=== PATIENT | female | born 1960 | race Caucasian/White ===

== ENCOUNTER 2017-04-03 10:52 | Day surgery (SDC) | payer MEDICAID ==
[2017-04-03 12:04] VITALS: PULSE 80; RESP 16; TEMP 98.3
[2017-04-03] MEDS ORDERED: GLUCAGON HCL 1 MG VIAL IVP PRN (12:24)
[2017-04-03] MEDS ORDERED: NALOXONE HCL 0.4 MG/ML INJ IVP PRN (12:24)
[2017-04-03] MEDS ORDERED: PROTAMINE SULFATE 50 MG/5 ML VIAL IVP PRN (12:24)
[2017-04-03] MEDS ORDERED: FLUMAZENIL 0.5 MG/5 ML MDV IVP PRN (12:24)
[2017-04-03] MEDS ORDERED: ALTEPLASE 2 MG VIAL IVP PRN (12:24)
[2017-04-03] MEDS ORDERED: fentaNYL 100 MCG/2 ML INJ IVP PRN (12:24)
[2017-04-03] MEDS ORDERED: MIDAZOLAM 2 MG/2 ML VIAL IVP PRN (12:24)
[2017-04-03] MEDS ORDERED: HEPARIN 10,000 UNIT/10 ML MDV (1,000 UNIT/ML) IVP PRN (12:24)
[2017-04-03] MEDS ORDERED: MEPERIDINE 25 MG/ML SYR IVP PRN (12:24)
[2017-04-03] MEDS ORDERED: NS 1,000 ML IV SCH (12:30)
--- NOTE | 2017-04-03 13:10 | PDPROPOC ---
Sedation Plan of Care Sedation Plan of Care: vital signs stable ASA Classification: ASA 2 Planned drugs: fentanyl, midazolam Mallampati Score: Class 2 Mallampati Reference Image: Patient passed 3-3-2 rule?: Yes
[2017-04-03] MEDS ORDERED: ONDANSETRON 4 MG/2 ML VIAL IVP PRN (13:17)
[2017-04-03] MEDS ORDERED: OXYCODONE/APAP 5/325 TAB PO PRN (13:17)
[2017-04-03] MEDS ORDERED: IOPAMIDOL (ISOVUE-300) 100 ML BTL ONE (14:07)
[2017-04-03 14:24] VITALS: BP 117/77; O2SAT 98
== END 2017-04-03 17:10 | disposition home or self-care (01) ==
LOC: FIMAGING 10:52
PROVIDERS: ATTEND Neurological Surgery
PROC: B31G1ZZ Fluoroscopy of Bilateral Vertebral Arteries using Low Osmolar Contrast (ICD-10-PCS; principal; 2017-04-03)
PROC: B3121ZZ Fluoroscopy of Left Subclavian Artery using Low Osmolar Contrast (ICD-10-PCS; principal; 2017-04-03)
PROC: B31R1ZZ Fluoroscopy of Intracranial Arteries using Low Osmolar Contrast (ICD-10-PCS; principal; 2017-04-03)
DX: I67.1 Cerebral aneurysm, nonruptured (principal)
CPT/HCPCS: 36224; 36226; 99152; C1769; J2250; J2310; J3010; Q9967

== ENCOUNTER 2017-11-05 05:16 | Inpatient (IN) | payer MEDICAID ==
[2017-11-05] MEDS ORDERED: ceFAZolin 2 GM/DEXTROSE 100 ML IV ONE (06:03)
[2017-11-05] MEDS ORDERED: ACETAMINOPHEN 500 MG TAB PO ONE (06:03)
[2017-11-05] MEDS ORDERED: LIDOCAINE 1% 2 ML INJ ID PRN (06:08)
[2017-11-05] MEDS ORDERED: LR 1,000 ML IV ONE (06:08)
[2017-11-05] MEDS ORDERED: MIDAZOLAM 2 MG/2 ML VIAL IVP ONE (06:48)
--- NOTE | 2017-11-05 07:00 | PDANEPAE ---
ANE History of Present Illness Left MCA ANE Past Medical History - Cardiovascular History Hx Hypertension: Yes Hx Arrhythmias: No Hx Chest Pain: No Hx Coronary Artery / Peripheral Vascular Disease: No Hx CHF / Valvular Disease: No Hx Palpitations: No Cardiovascular History Comment: Heart murmur - Pulmonary History Hx COPD: No Hx Asthma/Reactive Airway Disease: No Hx Recent Upper Respiratory Infection: No Hx Oxygen in Use at Home: No Hx Sleep Apnea: No Sleep Apnea Screening Result - Last Documented: Negative - Neurologic History Hx Cerebrovascular Accident: No Hx Seizures: No Hx Dementia: No Neurologic History Comment: VERTIGO EPISODE 03/2017. ONGOING DIZZINESS EPISODES. CEREBRAL ANEURYSM X2 - Endocrine History Hx Diabetes: No - Renal History Hx Renal Disorders: No - Liver History Hx Hepatic Disorders: No Hepatic History Comment: Cirrhosis. Hep C-treated and cured. 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 HERNIA - Other Health History Other Health History: NEG - Chronic Pain History Chronic Pain: Yes (b/l hands/feet) - Surgical History Prior Surgeries: aortic coarctation repair (17yr old). tubal ligation 1981 ANE Review of Systems Review of Systems: - Exercise capacity METS (RN): 4 METS - Systems Cardiac: Reports: no symptoms Respiratory: Reports: no symptoms, other (KULWINDER ?) ANE Patient History - Allergies Allergies/Adverse Reactions: No Allergies [NKA] Allergy (Verified 04/02/17 11:01) - Home Medications Home medications: home medication list seen and reviewed Home Medications: DULoxetine [Cymbalta 60 MG (*)] 60 mg PO DAILY 10/09/17 [Last Taken 10/29/17] Herbals/Supplements -Info Only 1 ea PO DAILY 10/09/17 [Last Taken 10/29/17] Lisinopril 30 mg PO DAILY 10/09/17 [Last Taken 10/29/17] Meclizine HCl [Meclizine HCl 25 mg (RX,OTC)] 25 mg PO DAILY PRN 10/09/17 [Last Taken 04/16/17] Multivitamins [Multivitamin (*)] 1 each PO DAILY 10/09/17 [Last Taken 10/29/17] - NPO status NPO Status: no food or drink >8 hours NPO Since - Liquids (Date): 11/04/17 NPO Since - Liquids (Time): 23:00 NPO Since - Solids (Date): 11/04/17 NPO Since - Solids (Time): 23:00 - Anes Hx Anes Hx: no prior problems - Smoking Hx Smoking Status: Never smoked Marijuana use: Yes - Alcohol Use Alcohol Use: None - Family Anes Hx Family Anes Hx: none Family Hx Anesthesia Complications: None ANE Labs/Vital Signs - Vital Signs Blood Pressure: 145/106 Heart Rate: 71 Respiratory Rate: 16 O2 Sat (%): 97 Height: 148.59 cm Weight: 68.946 kg
--- NOTE | 2017-11-05 07:08 | PDANEPAE ---
ANE Past Medical History - Cardiovascular History Hx Hypertension: Yes Hx Arrhythmias: No Hx Chest Pain: No Hx Coronary Artery / Peripheral Vascular Disease: No Hx CHF / Valvular Disease: No Hx Palpitations: No Cardiovascular History Comment: Heart murmur - Pulmonary History Hx COPD: No Hx Asthma/Reactive Airway Disease: No Hx Recent Upper Respiratory Infection: No Hx Oxygen in Use at Home: No Hx Sleep Apnea: No Sleep Apnea Screening Result - Last Documented: Negative - Neurologic History Hx Cerebrovascular Accident: No Hx Seizures: No Hx Dementia: No Neurologic History Comment: VERTIGO EPISODE 03/2017. ONGOING DIZZINESS EPISODES. CEREBRAL ANEURYSM X2 - Endocrine History Hx Diabetes: No - Renal History Hx Renal Disorders: No - Liver History Hx Hepatic Disorders: No Hepatic History Comment: Cirrhosis. Hep C-treated and cured. 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 HERNIA - Other Health History Other Health History: NEG - Chronic Pain History Chronic Pain: Yes (b/l hands/feet) - Surgical History Prior Surgeries: aortic coarctation repair (17yr old). tubal ligation 1981 ANE Review of Systems Review of Systems: - Exercise capacity METS (RN): 4 METS ANE Patient History - Allergies Allergies/Adverse Reactions: No Allergies [NKA] Allergy (Verified 04/02/17 11:01) - Home Medications Home Medications: DULoxetine [Cymbalta 60 MG (*)] 60 mg PO DAILY 10/09/17 [Last Taken 10/29/17] Herbals/Supplements -Info Only 1 ea PO DAILY 10/09/17 [Last Taken 10/29/17] Lisinopril 30 mg PO DAILY 10/09/17 [Last Taken 10/29/17] Meclizine HCl [Meclizine HCl 25 mg (RX,OTC)] 25 mg PO DAILY PRN 10/09/17 [Last Taken 04/16/17] Multivitamins [Multivitamin (*)] 1 each PO DAILY 10/09/17 [Last Taken 10/29/17] - NPO status NPO Since - Liquids (Date): 11/04/17 NPO Since - Liquids (Time): 23:00 NPO Since - Solids (Date): 11/04/17 NPO Since - Solids (Time): 23:00 - Smoking Hx Smoking Status: Never smoked - Alcohol Use Alcohol Use: None - Family Anes Hx Family Hx Anesthesia Complications: None ANE Labs/Vital Signs - Vital Signs Blood Pressure: 145/106 Heart Rate: 71 Respiratory Rate: 16 O2 Sat (%): 97 Height: 148.59 cm Weight: 68.946 kg ANE Physical Exam - Airway Neck exam: decreased ROM Mallampati Score: Class 2 Mouth exam: normal dental/mouth exam - Pulmonary Pulmonary: no respiratory distress, no rales or rhonchi - Cardiovascular Cardiovascular: regular rate and rhythym, systolic murmur - ASA Status ASA Status: III ANE Anesthesia Plan Anesthesia Plan: general endotracheal anesthesia Lines/Monitors: arterial line, central line Specialized Airway: video laryngoscope
[2017-11-05] MEDS ORDERED: BACITRACIN ZINC 14.2 GM OINTTUBE TP ONE (07:10)
[2017-11-05] MEDS ORDERED: AVITENE POWDER 1 GM JAR TP ONE (07:10)
[2017-11-05] MEDS ORDERED: THROMBIN (BOVINE) 20,000 UNIT VIAL TP ONE (07:10)
[2017-11-05] MEDS ORDERED: BUPIVACAINE 0.25% 30 ML SDV ONE (07:10)
[2017-11-05] MEDS ORDERED: EPINEPHrine 1 MG/ML INJ ONE (07:11)
[2017-11-05] MEDS ORDERED: GENTAMICIN SULFATE 80 MG/2 ML VIAL ONE (07:11)
[2017-11-05] MEDS ORDERED: PROPOFOL/EMULSION 500 MG/50 ML BOTTLE IV ONE ×2 (07:13)
[2017-11-05] MEDS ORDERED: PETROLAT,WHT/MIN OIL/SOD CHL 3.5 GM OPHT.OINT ONE (07:13)
[2017-11-05] MEDS ORDERED: fentaNYL 100 MCG/2 ML INJ ONE ×2 (07:13→11:35)
[2017-11-05] MEDS ORDERED: REMIFENTANIL HCL 2 MG VIAL ONE (07:13)
[2017-11-05] MEDS ORDERED: MANNITOL 20% 100 GM/500 ML BAG IV ONE (07:13)
[2017-11-05] MEDS ORDERED: INDOCYANINE GREEN 25 MG VIAL ONE (07:14)
--- NOTE | 2017-11-05 07:16 | PDHPUP ---
History & Physical Update H&P update statement: This history and physical update is based on an assessment of the patient which was completed after admission or registration (within 24 hours), but prior to the surgery/procedure. H&P update: H&P reviewed & patient examined, no change in patient's condition since H&P completed
[2017-11-05] MEDS ORDERED: CHLORHEXIDINE GLUC HIBICLENS 118 ML BTL TP ONE (07:29)
[2017-11-05] MEDS ORDERED: MIDAZOLAM 2 MG/2 ML VIAL ONE (07:32)
--- NOTE | 2017-11-05 07:37 | GHP ---
DATE OF ADMISSION: 11/05/2017 HISTORY OF PRESENT ILLNESS: This is a 57-year-old female whom we did an angiogram on for bilateral MCA aneurysms. She has a 2.5 mm aneurysm of the right MCA bifurcation and a 3.5 to 4 mm aneurysm at the left MCA bifurcation. She has recovered well from her angiogram and is not having any new symptoms. She came to the clinic to discuss further treatment and said she would like to proceed with surgery for surgical clipping of these aneurysms. She stated that she had a brother who of a ruptured aneurysm and a father whom she had recently found out had aneurysms as well. So for this reason, she was too worried about a risk of rupture, even though it is very low and would like to get it taken care of and she presents electively today for surgical clipping of 1 of these aneurysms today. She denies any recent headaches or other neurologic symptoms. REVIEW OF SYSTEMS: HEENT: Eyes wears glasses. Ears, nose throat: Hearing loss. CARDIOVASCULAR: Significant for chest pain, angina, shortness of breath , high blood pressure, irregular pulse, heart disease. Denies heart murmur. NEUROLOGIC: positive for vertigo, dizziness, facial pain. PSYCHOLOGICAL: Significant for depression. MUSCULOSKELETAL: Significant for back pain, leg pain on the right and the left and leg weakness on the right and left and neck pain. ALLERGIES: Patient has no known drug allergies. PAST MEDICAL HISTORY: The patient has a past medical history of high blood pressure, depression, back pain. PAST SURGICAL HISTORY: Reviewed and there is no current past surgical history. SOCIAL HISTORY: Patient denies any smoking tobacco use. FAMILY HISTORY: Patient has a family history of ruptured aneurysms in the father and the brother. HOME MEDICATIONS: Please see the current home medication reconciliation report. OBJECTIVE: VITAL SIGNS: Blood pressure 145/106, heart rate 71, respiratory rate 16, O2 saturation 97% on room air, temperature 37. NEUROLOGIC: Patient is well developed, well nourished, and speaking full sentences. Her speech is clear and fluent. Cranial nerves 2-12 are grossly intact. Strength is full in all extremities. Sensation is normal. Deep tendon reflexes are normal. Gait is normal. CARDIOVASCULAR: Well perfused. RESPIRATORY: Normal work of breathing. ABDOMEN: No guarding. EXTREMITIES: No edema or calf tenderness. LABORATORY DATA: No current laboratory data to review. DIAGNOSTIC IMAGING: No current diagnostic imaging data to review. ASSESSMENT AND PLAN: The patient has bilateral small unruptured MCA aneurysms. We discussed with her all the options. She has very prominent cervical loops in her bilateral ICA's and given that these are MCA aneurysms, I do not favor endovascular treatment. We explained to her the risk of rupture at probably somewhere less than 0.5% per year. Data has shown the risks of aneurysm is less than 7 mm to be very near zero. However, her risk is probably a bit higher because she has 2 aneurysms. We discussed surgical clipping which we think would be very feasible with low risk especially of the left-sided aneurysm. The other option would be to continue following these yearly with a CTA and only treat them if they start to grow. While the risk of rupture is low , the risk of significant morbidity or is high with rupture. Due to her family history, she would like to proceed with surgery. Discussed with Dr. Crhistianson as well. The patient would like to proceed with clipping of the left MCA aneurysm. /[id number]/MODL MTDD
[2017-11-05] MEDS ORDERED: niCARdipine/NACL/200 ML BAG IV ONE (08:34)
[2017-11-05] MEDS ORDERED: ROCURONIUM 100 MG/10 ML VIAL ONE (09:10)
[2017-11-05] MEDS ORDERED: ROCURONIUM 50 MG/5 ML VIAL ONE (09:11)
[2017-11-05] MEDS ORDERED: PHENYLEPHRINE HCL 100 MCG/ML SYR ONE (09:11)
[2017-11-05] MEDS ORDERED: ONDANSETRON 4 MG/2 ML VIAL ONE (09:11)
[2017-11-05] MEDS ORDERED: DEXAMETHASONE 4 MG/ML VIAL ONE ×2 (09:11)
[2017-11-05] MEDS ORDERED: GLYCOPYRROLATE 0.2 MG/1 ML VIAL ONE (09:12)
[2017-11-05] MEDS ORDERED: REMIFENTANIL HCL 1 MG VIAL ONE (10:44)
[2017-11-05] MEDS ORDERED: ePHEDrine SULFATE 25 MG/5 ML SYR ONE (11:05)
--- NOTE | 2017-11-05 11:43 | GOP ---
DATE OF OPERATION: 11/05/2017 SURGEON: Vinicius Christianson MD INSIDE WIREMAN: ANEL Gay. ANESTHESIA: General endotracheal. PREOPERATIVE DIAGNOSIS: Unruptured bilateral MCA aneurysms. POSTOPERATIVE DIAGNOSIS: Unruptured bilateral MCA aneurysms. PROCEDURE PERFORMED: 1. Left pterional craniotomy. 2. Microsurgical clipping of unruptured left MCA aneurysm (complex with use of temporary clipping). 3. Use of the operative microscope. 4. Indocyanine green angiography with the use of the operative microscope. FINDINGS: Successful clipping of left MCA aneurysm. SPECIMENS: There were no specimens. ESTIMATED BLOOD LOSS: 100 cc. DESCRIPTION OF PROCEDURE: After informed consent was obtained from the patient, the patient was brou ght to the operating room and was placed in a supine position on the operating table. A formal time- out was performed, identifying the patient by name, medical record number, and date of . Preope rative antibiotics were given. An endotracheal tube was placed, and general endotracheal anesthesia was smoothly induced. The patient's head was placed in the [place] pins and turned slightly toward the right side with the malar eminence at the highest point. A curvilinear incision was marked as st andard for pterional craniotomy, and a small strip of hair was clipped along the incision line. 10 c c of 0.25% Marcaine with epinephrine was infiltrated in the skin for hemostasis. The head was then p repped and draped in the normal sterile fashion. The skin was opened using a 10 blade. The subcutan eous tissues were dissected using monopolar electrocautery. Enrique clips were placed for hemostasis. The temporalis muscle and fascia were opened in line with the incision, and a single myocutaneous fl ap was retracted anteriorly. Three romeo holes were then created in standard pterional fashion, and a craniotome was used to turn a pterional craniotomy flap. All bleeding was controlled using bipolar electrocautery and Gelfoam. The sphenoid wing was then drilled down parallel to the skull base. The operative microscope was then brought onto the field, and the remainder of the procedure was perform ed under high-power magnification. The dura was then opened in a curvilinear fashion with its base o f the sphenoid wing and retracted inferiorly. The brain was then inspected, and the sylvian fissure was well visualized. There was a large vein coursing on the superior aspect of the sylvian fissure, and the arachnoid just distal to this vein was opened. The sylvian fissure was very wide and without many adhesions. The arachnoid was carefully dissected. The vein was largely in the way, therefore it needed to be mobilized, and we did this with microsurgical arachnoid dissection. We were then abl e to deepen our dissection of the sylvian fissure, and the M2 branches were visualized and followed p roximally. The aneurysm was then seen at the MCA bifurcation, and the temporal M2 was carefully diss ected, freeing this completely. The aneurysm was quite broad, encompassing 270 degrees around the MC A bifurcation in a plane perpendicular with the bifurcation itself. This was carefully inspected, an d the M1 segment was also freed for the possible need of temporary clipping. I did not see an obviou s single clip strategy given the 270 degree nature involvement of the MCA bifurcation, and the bifurc ation needed to be reconstructed without causing stenosis of the M2 branches. Therefore, we elected to place a temporary clip on the M1 segment. A straight clip was then placed parallel to the posteri or portion of the M1 segment, taking the superior and posterior portions of the aneurysm. A curved c lip was then placed perpendicular to the 1st clip reconstructing the more anterior portion, and the t emporary clip was removed after 2-1/2 minutes of temporary clip time. The reconstruction was then in spected, and on the anterior portion of the MCA a dog ear was visualized. We then selected a fenestr ated titanium [facility] aneurysm clip, which the original 2 clips were placed in the fenestration , and the blades were closed along the dog ear, completely reconstructing the MCA bifurcation. The M 2 branches and M1 were checked then with Doppler ultrasound and had good flow. An indocyanine green angiogram was performed using the operative microscope, which again had excellent flow in all branche s and no sign of any residual aneurysm. At this point, the bae of the sylvian fissure were covered with Surgicel. The wound was copiously irrigated using gentamicin irrigation. The dura was closed, but the quality of the dura was quite poor and could not be closed in a watertight fashion. A DuraG en graft was placed over the dura, and the bone flap was then plated back in place using stickK dionisio nium plates and screws. Again, the wound was copiously irrigated using bacitracin irrigation. A 10- Uzbek subgaleal CORTNEY drain was placed, and the temporalis muscle and fascia was closed in an interrupt ed fashion using 2-0 Vicryl. The galea was then closed using interrupted 2-0 Vicryls, and the skin w as closed using a running 4-0 Monocryl. Sterile dressings were placed. The patient was awakened in the operating room. She was extubated and was transferred to PACU in stable condition. There were n o operative complications. I was scrubbed and present for the entire procedure. All sponge and need le counts were correct at the end of the case. BRIEF CLINICAL HISTORY: Sandra Panda is a 57-year-old woman who had incidentally found bilateral MCA aneurysms. We did an angiogram on her a few months ago showing the left MCA aneurysm measuring grea test diameter of about 5 mm and the right side about 2.5. We discussed the options, and given her fa ashley history of subarachnoid hemorrhage, she wanted the larger of the 2 aneurysms treated. Given the broad nature of the neck, we felt surgical clipping would be the best treatment. FLUIDS AND URINE OUTPUT: Per the anesthesia record. DRAINS: A subgaleal CORTNEY. /[id number]/MODL
[2017-11-05] MEDS ORDERED: NALOXONE HCL 0.4 MG/ML INJ IVP PRN (11:58)
[2017-11-05] MEDS ORDERED: ONDANSETRON 4 MG/2 ML VIAL IVP PRN ×2 (11:58→11:59)
[2017-11-05] MEDS ORDERED: fentaNYL 100 MCG/2 ML INJ IVP PRN (11:58)
[2017-11-05] MEDS ORDERED: HYDROmorphONE/DILAUDID 1 MG/ML INJ IVP PRN (11:58)
[2017-11-05] MEDS ORDERED: LACTULOSE 20 GM/30 ML UDCUP PO PRN (11:59)
[2017-11-05] MEDS ORDERED: BISACODYL 10 MG SUPP PR PRN (11:59)
[2017-11-05] MEDS ORDERED: diphenhydrAMINE 25 MG CAP PO PRN (11:59)
[2017-11-05] MEDS ORDERED: POLYETHYLENE GLYCOL 3350 17 GM PKT PO PRN (11:59)
[2017-11-05] MEDS ORDERED: MAGNESIUM HYDROXIDE 30 ML UDCUP PO PRN (11:59)
[2017-11-05] MEDS ORDERED: ONDANSETRON DISINTEGRATING 4 MG TAB PO PRN (11:59)
[2017-11-05] MEDS ORDERED: niCARdipine/NACL 200 ML IV PRN (11:59)
[2017-11-05] MEDS ORDERED: MECLIZINE HCL 25 MG TAB PO PRN (12:07)
--- NOTE | 2017-11-05 12:14 | POSTOPPROG ---
Post Op Note Date of Operation: 11/05/17 Surgeon: Vinicius Christianson Sugar Trucker: Liya Guzmán PA-C Anesthesia: GET(General Endotracheal) Pre-op Diagnosis: Unreuptured cerebral aneurysm Post-op Diagnosis: same Procedure: Left temporal craniotomy for clipping of left MCA aneuryms Inf/Abcess present in the surg proc area at time of surgery?: No Depth: Organ Space EBL: 100mL Total fluids administered: 1200 Complications: None observed Drains: Solis Max (Subgaleal) SOAP Progress Note Assessment/Plan: Assessment: Plan: 11/05/17 12:09 S: Patient in room, stable with some expected head pain. O: NAD, VSS- on Cardene 140/92 PERRL, EOMI CN II-XII grossly intact Face symmetrical Following commands HUTCHINS X4 with good strength Incision c/d/i dressed MIKE X1- to full suction full of serosang in bulb A: 57 yo female sp left MCA aneurysm clipping P: -Admit to ICU -SBP 90-140- Cardene on board and has home medications -BMP/CBC labs pending tomorrow -Mike X1 to full suction -Postop CT in am -q1 hour neuro checks for 8 hours, then can be q2 -optimize pain management -May get an angiogram tomorrow as well, Dr. Christianson to decide -Advance diet as tolerated -Any changes in neuro exam please contact NS Objective: Vital Signs Temp Pulse Resp BP Pulse Ox 37.0 C 71 16 145/106 H 97 11/05/17 06:44 11/05/17 07:07 11/05/17 07:07 11/05/17 07:07 11/05/17 07:07
[2017-11-05] MEDS: NS W/ 20 KCl/L 1,000 ML IV SCH (12:24)
--- NOTE | 2017-11-05 15:15 | POSTANESTH ---
Post Anesthetic Evaluation Cardiovascular Status: Tx Hyper/Hypo-tension Respiratory Status: Normal, Stable Level of Consciousness/Mental Status: Can Participate in Eval Pain Control: Adequate, Prn Tx Ordered Nausea/Vomiting Control: Adequate, Prn Tx Ordered Complications Possibly Related to Anesthesia: None Noted (BP control with cardene. Chest x ray No pneumothorax)
--- NOTE | 2017-11-05 15:19 | PDMN ---
Medical Necessity Medical necessity: [facility] IP only surgery; cpt 91992 Craniotomy w/clipping of MCA aneurysm
[2017-11-05] MEDS: ceFAZolin 2 GM/DEXTROSE 100 ML IV SCH (15:23)
[2017-11-05] MEDS: POLYETHYLENE GLYCOL 3350 17 GM PKT PO SCH ×2 (15:28→22:21)
[2017-11-05] MEDS ORDERED: ceFAZolin 2 GM in NS 50 ML IV SCH (16:00)
[2017-11-05] MEDS: HYDROCODONE/APAP 10/325 TAB PO PRN (20:34)
[2017-11-05] MEDS: SENNOSIDES/DOCUSATE SODIUM TAB PO SCH (20:34)
[2017-11-06] MEDS: ceFAZolin 2 GM/DEXTROSE 100 ML IV SCH (00:34)
[2017-11-06] MEDS: NS W/ 20 KCl/L 1,000 ML IV SCH (03:06)
[2017-11-06] MEDS: HYDROCODONE/APAP 10/325 TAB PO PRN ×3 (03:57→20:44)
[2017-11-06 04:21] LABS: PLATELET COUNT 220 10^3/uL (150-400)
[2017-11-06] MEDS: SENNOSIDES/DOCUSATE SODIUM TAB PO SCH ×2 (08:24→20:44)
[2017-11-06] MEDS: DULoxetine 60 MG CAP PO SCH (08:24)
[2017-11-06] MEDS: POLYETHYLENE GLYCOL 3350 17 GM PKT PO SCH ×3 (08:25→20:55)
[2017-11-06] MEDS: LISINOPRIL 20 MG TAB PO SCH (08:25)
--- NOTE | 2017-11-06 08:44 | NEUSURGPN ---
Assessment/Plan: A: 57 yo female sp left MCA aneurysm clipping POD#1 P: -Transfer to floor this am -SBP 90-140- PT has not needed much Cardene, has been off. Home medications -BMP/CBC labs pending tomorrow -Mike X1 to full suction - removed this am. intact and pt tolerated well -Postop CT - reviewed and overall looks good -OK for Q4 hour neuros -optimize pain management -Advance diet as tolerated -Any changes in neuro exam please contact NS -D/w Dr Christianson Subjective: Pt resting in bedside chair, feeling good Objective: AAOx3 NAD CN II-XII grossly intact, no droop MAEx4 Motor 5/5 BUE/BLE MIKE subgaleal removed intact +LT Urinary Catheter in Place: No Catheter Insertion Date: 11/05/17 - Physician Discussed Patient with : Meghan Neurosurgery Physical Exam - Vitals, I&O, Labs I and O 11/05/17 11/06/17 11/07/17 05:59 05:59 05:59 Intake Total 1842 Output Total 2335 Balance -493 Weight 68.946 kg Intake: Oral (ml) 155 IV Infused (ml) 1687 NS W/ 20 KCl/L 1,000 ml @ 1426 75 mls/hr IV CONT MESSI Rx #:[id number] niCARdipine/NACL 200 ml @ 261 Titrate IV PRN PRN Rx#: [id number] Output: Urine (ml) 2150 Catheter 2150 MIKE Drain Output (ml) 185 Left Head Solis Max 185 Vital Signs Temp Pulse Resp BP Pulse Ox 36.7 C 65 14 116/75 97 11/06/17 04:00 11/06/17 07:00 11/06/17 07:00 11/06/17 07:00 11/06/17 07:00 Laboratory Results 11/06/17 04:00 11/06/17 04:00 ICD10 Worksheet Patient Problems: Problems Problem Status Onset Aneurysm Acute - ICD10 Problem Qualifiers (1) Aneurysm
--- NOTE | 2017-11-06 11:29 | GCON ---
CRITICAL CARE CONSULT DATE OF CONSULTATION: 11/06/2017 HISTORY OF PRESENT ILLNESS: This patient is a 57-year-old female who had an evaluation for cerebral aneurysms after her father and brother had issues related to them. Her brother after a ruptured aneurysm. In any case, she was found to have bilateral medial cerebral artery aneurysms and was adm itted electively for clipping of the left side. She had no recent headaches but did have some interm ittent vertigo in the past of uncertain etiology. The surgery itself was unremarkable. She was extu bated shortly afterwards and was monitored overnight in the ICU. REVIEW OF SYSTEMS: Otherwise negative. PAST MEDICAL HISTORY: Includes: 1. The aneurysms as described above. 2. Hypertension. 3. Depression. 4. She said a hole in her heart but was uncertain if this was an ASD or PFO, and there were no inter ventions in the past. She also does have chronic back pain history. PAST SURGICAL HISTORY: None. SOCIAL HISTORY: She is a nonsmoker. No alcohol or IV drug use. FAMILY HISTORY: Includes the aneurysms. CURRENT MEDICATIONS: Include [place], Dulcolax, Benadryl, Cymbalta, Zestril, meclizine, Cardene as nee ded, MiraLAX, Senokot. PHYSICAL EXAM: VITAL SIGNS: She was afebrile, heart rate of 85, blood pressure 116/75, respirations 20, oxygen saturation 90% on room air. GENERAL: She was a pleasant, obese woman in no apparent dis tress. Was able to speak in full sentences without using accessory muscles for breathing. HEENT: P upils equally round, reactive to light, nonicteric, and noninjected. Mucous membranes moist without erythema or exudate. Cranial scar dressing was clean and dry. NECK: Supple without adenopathy, jug ular vein distention. Breath sounds were clear to auscultation bilaterally without wheezes, rubs, ra les. HEART: Regular rate and rhythm without murmurs, rubs, gallops. ABDOMEN: Soft, nontender, non distended without hepatosplenomegaly. EXTREMITIES: Show no clubbing, cyanosis, or edema. NEUROLOGI C: Nonfocal, including cranial nerves, deep tendon reflexes. SKIN: Warm, dry without evidence of r lexi. OBJECTIVE DATA: Includes a white count of 12.7, hematocrit of 39, platelets of 220. Normal basic me tabolic panel. ASSESSMENT/PLAN: 1. Status post clipping of a left middle cerebral artery aneurysm. She has appeared to do very well from this perspective, and there is no specific intervention required. 2. Depression. Seems to be somewhat labile today and became tearful telling me some of her past med ical history but is otherwise relatively stable. I would leave her on the [facility] for now. /[id number]/MODL
--- NOTE | 2017-11-07 06:06 | NEUSURGPN ---
Assessment/Plan: A: 57 yo female sp left MCA aneurysm clipping POD#2 P: -SBP 90-140- On Home medications -BMP/CBC labs pending tomorrow -Postop CT - reviewed and overall looks good -OK for Q4 hour neuros -optimize pain management -Any changes in neuro exam please contact NS -manager rail consult for possible placement. work towards dispo planning likely tomorrow -D/w Dr Christianson Subjective: Denies any headaches, nausea, dizziness Objective: AAOx3 NAD CN II-XII grossly intact, no droop MAEx4 Motor 5/5 BUE/BLE +LT Catheter Insertion Date: 11/05/17 - Physician Discussed Patient with : Meghan Neurosurgery Physical Exam - Vitals, I&O, Labs I and O 11/06/17 11/07/17 11/08/17 05:59 05:59 05:59 Intake Total 1842 Output Total 2335 Balance -493 Weight 68.946 kg 68 kg Intake: Oral (ml) 155 IV Infused (ml) 1687 NS W/ 20 KCl/L 1,000 ml @ 1426 75 mls/hr IV CONT MESSI Rx #:[id number] niCARdipine/NACL 200 ml @ 261 Titrate IV PRN PRN Rx#: [id number] Output: Urine (ml) 2150 Catheter 2150 CORTNEY Drain Output (ml) 185 Left Head Solis Max 185 Other: Number of Voids Toilet 1 Vital Signs Temp Pulse Resp BP Pulse Ox 36.9 C 81 16 118/78 98 11/07/17 00:00 11/07/17 00:00 11/07/17 00:00 11/07/17 00:00 11/07/17 00:00 Laboratory Results 11/06/17 04:00 11/06/17 04:00 ICD10 Worksheet Patient Problems: Problems Problem Status Onset Aneurysm Acute
[2017-11-07] MEDS: SENNOSIDES/DOCUSATE SODIUM TAB PO SCH ×2 (08:37→21:35)
[2017-11-07] MEDS: DULoxetine 60 MG CAP PO SCH (08:37)
[2017-11-07] MEDS: LISINOPRIL 20 MG TAB PO SCH (08:38)
[2017-11-07] MEDS: POLYETHYLENE GLYCOL 3350 17 GM PKT PO SCH ×3 (08:40→21:35)
[2017-11-07] MEDS: HYDROCODONE/APAP 10/325 TAB PO PRN ×2 (08:46→17:33)
[2017-11-07] MEDS: levETIRAcetam 500 MG TAB PO SCH ×2 (14:12→21:35)
--- NOTE | 2017-11-07 15:33 | PDHOSCONS ---
History and Physical - Chief Complaint Acute dysarthria - History of Present Illness Primary service: Dr. Kulwant Christianson, neurosurgery Reason for consultation: Stroke alert HPI: 57-year-old female presents with elective clipping of left-sided MCA aneurysm, complicated by acute dysarthria with onset of symptoms at 12:10 p.m. On 11/07/2017. Per patient's sister, who witnessed the event, the patient was getting a shower, and as the patient was trying off, she became dysarthric, characterized as word-finding difficulty, slurred speech, with approximately 5 min duration. The symptoms had been preceded by some associated fatigue on the morning of presentation. The patient had received 1 dosage of [place] at approximately 9:00 a.m.. The patient's nurse was notified of the symptoms, and a code stroke was called. I evaluated the patient at 12:15 p.m.. At the time of my evaluation, the patient reports that her symptoms were abating. History Information - Allergies/Home Medication List Allergies/Adverse Reactions: No Allergies [NKA] Allergy (Verified 04/02/17 11:01) Home Medications: DULoxetine [Cymbalta 60 MG (*)] 60 mg PO DAILY 10/09/17 [Last Taken 10/29/17] Herbals/Supplements -Info Only 1 ea PO DAILY 10/09/17 [Last Taken 10/29/17] Lisinopril 30 mg PO DAILY 10/09/17 [Last Taken 10/29/17] Meclizine HCl [Meclizine HCl 25 mg (RX,OTC)] 25 mg PO DAILY PRN 10/09/17 [Last Taken 04/16/17] Multivitamins [Multivitamin (*)] 1 each PO DAILY 10/09/17 [Last Taken 10/29/17] I have personally reviewed and updated: family history, medical history, social history, surgical history - Past Medical History Additional medical history: Bilateral MCA aneurysms. ASD or PFO. Depression. Hypertension - Surgical History Additional surgical history: 11/05 left-sided MCA clipping - Family History Additional family history: Father with cerebral aneurysm and abdominal aneurysm , sibling with cerebral aneurysms, sibling with CVA and melanoma, other sibling with OK and melanoma - Social History Smoking Status: Never smoked Alcohol Use: Heavy (Occasionally heavy use) Drug Use: None Additional social history: Independent in her ADLs, currently homeless, 1 of 8 children, sister is at bedside Review of Systems Review of Systems: ROS: 10pt was reviewed & negative except for what was stated in HPI & below Neurological: Reports: other (Dysarthria, word-finding difficulties, fatigue, slurred speech) Physical Exam Physical Exam: Temp Pulse Resp BP Pulse Ox 36.8 C 85 16 127/73 H 81 L 11/07/17 08:00 11/07/17 08:00 11/07/17 08:00 11/07/17 08:38 11/07/17 08:00 O2 (L/minute) 1 Constitutional: no apparent distress, not in pain, chronically ill appearing, No uncomfortable Eyes: PERRL, anicteric sclera, EOMI Ears, Nose, Mouth, Throat: moist mucous membranes, hearing normal, ears appear normal, no oral mucosal ulcers Cardiovascular: regular rate and rhythym, no murmur, rub, or gallop, No edema Respiratory: no respiratory distress, no rales or rhonchi, clear to auscultation Gastrointestinal: normoactive bowel sounds, soft, non-tender abdomen, no palpable masses Skin: other (Incision site left scalp without any surrounding erythema or induration, very mild tenderness) Neurologic: AAOx3, sensation intact bilaterally, CN II-XII Intact, other (No dysarthria on exam), No weakness Psychiatric: not anxious, not encephalopathic, flat affect, No agitated Lab Data & Imaging Review 11/06/17 04:00 11/06/17 04:00 WBC 12.79 10^3/uL (3.80-9.50) H 11/06/17 04:00 RBC 4.13 10^6/uL (4.18-5.33) L 11/06/17 04:00 Hgb 13.6 g/dL (12.6-16.3) 11/06/17 04:00 Hct 39.5 % (38.0-47.0) 11/06/17 04:00 MCV 95.6 fL (81.5-99.8) 11/06/17 04:00 MCH 32.9 pg (27.9-34.1) 11/06/17 04:00 MCHC 34.4 g/dL (32.4-36.7) 11/06/17 04:00 RDW 13.6 % (11.5-15.2) 11/06/17 04:00 Plt Count 220 10^3/uL (150-400) 11/06/17 04:00 MPV 9.3 fL (8.7-11.7) 11/06/17 04:00 Neut % (Auto) 81.6 % (39.3-74.2) H 11/06/17 04:00 Lymph % (Auto) 11.4 % (15.0-45.0) L 11/06/17 04:00 [place] % (Auto) 6.6 % (4.5-13.0) 11/06/17 04:00 Eos % (Auto) 0.0 % (0.6-7.6) L 11/06/17 04:00 Baso % (Auto) 0.1 % (0.3-1.7) L 11/06/17 04:00 Nucleat RBC Rel Count 0.0 % (0.0-0.2) 11/06/17 04:00 Absolute Neuts (auto) 10.44 10^3/uL (1.70-6.50) H 11/06/17 04:00 Absolute Lymphs (auto) 1.46 10^3/uL (1.00-3.00) 11/06/17 04:00 Absolute Monos (auto) 0.84 10^3/uL (0.30-0.80) H 11/06/17 04:00 Absolute Eos (auto) 0.00 10^3/uL (0.03-0.40) L 11/06/17 04:00 Absolute Basos (auto) 0.01 10^3/uL (0.02-0.10) L 11/06/17 04:00 Absolute Nucleated RBC 0.00 10^3/uL (0-0.01) 11/06/17 04:00 Immature Gran % 0.3 % (0.0-1.1) 11/06/17 04:00 Immature Gran # 0.04 10^3/uL (0.00-0.10) 11/06/17 04:00 Sodium 139 mEq/L (135-145) 11/06/17 04:00 Potassium 4.3 mEq/L (3.3-5.0) 11/06/17 04:00 Chloride 107 mEq/L (97-110) 11/06/17 04:00 Carbon Dioxide 22 mEq/l (22-31) 11/06/17 04:00 Anion Gap 10 mEq/L (8-16) 11/06/17 04:00 BUN 11 mg/dL (7-23) 11/06/17 04:00 Creatinine 0.6 mg/dL (0.6-1.0) 11/06/17 04:00 Estimated GFR > 60 11/06/17 04:00 Glucose 106 mg/dL (70-100) H 11/06/17 04:00 POC Glucose 93 mg/dL (70-100) 11/07/17 12:12 Calcium 9.0 mg/dL (8.5-10.4) 11/06/17 04:00 Phenytoin < 3.0 mcg/mL (10.0-20.0) L 11/06/17 04:00 Patient ABO/Rh B POSITIVE 11/03/17 09:36 Antibody Screen NEGATIVE 11/03/17 09:36 Crossmatch IS Only See Detail 11/03/17 09:36 Bld Prod Verbal Order YES 11/03/17 09:36 Visualized and Interpreted Chest x-ray results: Yes Chest X-Ray results: other (Increased interstitial infiltrates, left-sided atelectasis) Assessment & Plan Assessment: 57-year-old female presents with elective left-sided MCA clipping complicated by acute dysarthria Plan: 1. Dysarthria. Acute, new problem this provider, further workup indicated. Unclear whether this was a TIA versus secondary to cognitive fatigue and sensitivity the pain medication versus focal, partial seizure -will check CBC and electrolytes to rule out infectious or metabolic etiology -discussed case with Dr. Christianson, he reports he will follow up the CT angiograms to ensure the patient does not have any focal intravascular thrombosis at the clipping site, he recommends dosing Keppra given the potential for seizure foci -discussed with Dr. Hope, he reports no intracranial hemorrhage on noncontrast head CT -monitor on telemetry to ensure no atrial fibrillation -attempt to use low-dose pain medications to avoid worsening fatigue 2. MCA aneurysms. Bilaterally, postop day to from left-sided clipping, will require right-sided clipping in future 3. Hypertension. Chronic, blood pressure well controlled on lisinopril [facility] will continue to follow up on this patient, follow up the results of above.
--- NOTE | 2017-11-07 15:56 | ASMTCMCOM ---
CM Note CM Note Notes: Pt d/c plan is to return to [facility] homeless where she has lived for the last three months. Pt is in [facility] four month program. Pt approved for 4-6 weeks in the medical respite at [facility] allowing her to convalesce at the [facility] and not counting against her 4 month days, pt does not have to leave the [facility] respite during the days. Pt reports her medical respite application was completed before this surgery and all she needs is d/c paperwork, preferably stating the need for 4-6 weeks of respite. Pt reports the [facility] is a clean, safe place she feels comfortable discharging to. Pt has support of a family caseworker and PCP is with [facility]. Pt has no family/friends she can stay with local. Pt has one son who resides in [place] and he is not able to assist now. Pt sister Rianna is in [place] from [place], has to return to [place] tomorrow. Rianna will transport pt back to [facility] tomorrow. Pt not interested in Medicaid LTC SNF 30 day stay, pt likely would not qualify because PT is only need, OT rec home, [employer] rec outpatient. Pt has a mental health therapist and reports her depression is managed. Pt looks forward to recovering and getting her job back at [employer]. Pt has applied for disability. Voicemail left at [facility] line [phone]. Neurosurgery JORDI García updated. D/c plan of care: [facility] Medical respite Date Signed: 11/07/2017 03:54 PM Electronically Signed By:YVONNE Recio
[2017-11-08] MEDS: HYDROCODONE/APAP 10/325 TAB PO PRN ×2 (03:23→13:41)
[2017-11-08 05:19] LABS: PLATELET COUNT 187 10^3/uL (150-400)
--- NOTE | 2017-11-08 09:06 | NEUSURGPN ---
Assessment/Plan: A: 57 yo female sp left MCA aneurysm clipping POD#2 P: -SBP 90-140- On Home medications -BMP/CBC labs pending tomorrow -Postop CT - reviewed and overall looks good -OK for Q4 hour neuros -optimize pain management -No new slurred speech events overnight. Keppra started yesterday to remain for 2 weeks. -Any changes in neuro exam please contact [facility] -medication manager consult for possible placement. work towards dispo planning likely tomorrow -D/w Dr Christianson Subjective: Denies any headaches, nausea, dizziness. SOme left eye puffiness/swelling Objective: AAOx3 NAD CN II-XII grossly intact, no droop. Some left eye swelling, consistent with mild incisional site swelling post surgery. MAEx4 Motor 5/5 BUE/BLE +LT Catheter Insertion Date: 11/05/17 - Physician Discussed Patient with Dr.: Christianson Neurosurgery Physical Exam - Vitals, I&O, Labs I and O 11/07/17 11/08/17 11/09/17 05:59 05:59 05:59 Intake Total 350 240 Balance 350 240 Weight 68 kg Intake: Oral (ml) 350 240 Other: Intake Quantity Yes Sufficient Output Comment Toilet per patient report Number of Voids Toilet 3 1 1 Vital Signs Temp Pulse Resp BP Pulse Ox 36.6 C 73 14 115/73 95 11/08/17 07:32 11/08/17 07:32 11/08/17 07:32 11/08/17 07:32 11/08/17 07:32 Laboratory Results 11/08/17 04:33 11/08/17 04:33 ICD10 Worksheet Patient Problems: Problems Problem Status Onset Aneurysm Acute
[2017-11-08] MEDS ORDERED: MAGNESIUM CITRATE 300 ML BOTTLE PO ONE (09:22)
[2017-11-08] MEDS: POLYETHYLENE GLYCOL 3350 17 GM PKT PO SCH (09:50)
[2017-11-08] MEDS: DULoxetine 60 MG CAP PO SCH (09:51)
[2017-11-08] MEDS: SENNOSIDES/DOCUSATE SODIUM TAB PO SCH (09:51)
[2017-11-08] MEDS: levETIRAcetam 500 MG TAB PO SCH (09:54)
[2017-11-08] MEDS: LISINOPRIL 20 MG TAB PO SCH (09:54)
[2017-11-08 11:40] VITALS: BP 106/73
--- NOTE | 2017-11-08 14:23 | ASMTLACE ---
LACE Length of stay for Answers: 4-6 days current admission Acuity / Level of Answers: Yes Care: Did the patient have an inpatient admission? Comorbidities - select Answers: Opioid dependence all that apply / Chronic pain Other Notes: HTN # of Emergency department Answers: 0 visits in the last 6 months Social determinants Answers: Mental health diagnosis (anxiety, depression, pers onality disorders, etc.) Score: 15 Date Signed: 11/08/2017 02:22 PM Electronically Signed By:YVONNE Recio
--- NOTE | 2017-11-08 14:25 | ASMTCMCOM ---
CM Note CM Note Notes: [facility] Complete application given to pt, the fax for the application is not working. Voicemail left on respite referral line stating pt has application and they can call [facility] with a working fax if they need it faxed. Pt sister Rianna will transport to senior care. Pt reports she has somewhere to fill her prescriptions. Date Signed: 11/08/2017 02:24 PM Electronically Signed By:YVONNE Recio
--- NOTE | 2017-11-08 15:53 | HOSPPROG ---
Hospitalist Progress Note Assessment/Plan: Assessment: 57-year-old female presents with elective left-sided MCA clipping complicated by acute dysarthria, constipation, and hypoxia Plan: 1. Dysarthria. Likely 2/2 sensitivity to pain Rx, no further episodes, no underlying etiology on CT imaging 2. MCA aneurysms. Bilaterally, postop day to from left-sided clipping, will require right-sided clipping in future 3. Hypertension. Chronic, blood pressure well controlled on lisinopril 4. Constipation. No BM following surg, will give mag citrate PO now 5. Acute atelectasis. Present on exam, 2/2 immobility, causing hypoxia (spO2 73 % on RA) -counseled patient regarding use of IS, had her demonstrate a 2L pull, encouraged ongoing usage Safe for discharge from a medical standpoint. Subjective: new non-painful swelling over L eye Objective: Vital Signs Temp Pulse Resp BP Pulse Ox 36.6 C 73 18 106/73 91 L 11/08/17 11:40 11/08/17 11:40 11/08/17 11:40 11/08/17 11:40 11/08/17 11:40 Laboratory Results 11/08/17 04:33 11/08/17 04:33 11/07/17 11/08/17 11/09/17 05:59 05:59 05:59 Intake Total 350 240 550 Balance 350 240 550 - Physical Exam Constitutional: no apparent distress, not in pain, chronically ill appearing, No uncomfortable Cardiovascular: regular rate and rhythym, no murmur, rub, or gallop Respiratory: no respiratory distress, inspiratory crackles, No expiratory wheeze , No bronchial breath sounds Gastrointestinal: normoactive bowel sounds, soft, non-tender abdomen, no palpable masses Neurologic: AAOx3, sensation intact bilaterally, No weakness, No facial droop Psychiatric: not anxious, not encephalopathic, flat affect, No agitated ICD10 Worksheet Patient Problems: Problems Problem Status Onset Aneurysm Acute
== END 2017-11-08 14:48 | disposition home or self-care (01) | DRG 21 ==
LOC: F3N 05:16 → F2N 10:33 → F3N 11-06 12:58
PROVIDERS: ADMIT Neurological Surgery; ATTEND Neurological Surgery
PROC: 03LG0CZ Occlusion of Intracranial Artery with Extraluminal Device, Open Approach (ICD-10-PCS; principal; 2017-11-05 07:15)
DX: I67.1 Cerebral aneurysm, nonruptured (principal); R47.1 Dysarthria and anarthria; I10 Essential (primary) hypertension; K59.00 Constipation, unspecified; J98.11 Atelectasis; Z59.0 Homelessness; F32.9 Major depressive disorder, single episode, unspecified
CPT/HCPCS: 92507-GN; 92523-GN; 97116-GP; 97161-GP; 97166-GO; 97530-GO; 97535-GO; C1713; J0171; J0690; J1100; J1170; J1580; J2250; J2270; J2370; J2405; J2704; J3010